=== PATIENT | female | born 1960 | race Caucasian/White ===

== ENCOUNTER 2016-07-21 10:55 | Emergency (ER) | payer MEDICAID ==
[~2016-07-21] VITALS: Ht 152.4 cm; Wt 64.9 kg
[~2016-07-21 10:55] MED LIST: FERR325T10 PO; OXYC-302 PO
[2016-07-21 12:34] LABS: ASPARTATE AMINO TRANSFERASE 16 U/L (15-37); BLOOD UREA NITROGEN 11 mg/dL (7-18)
[2016-07-21 13:26] VITALS: BP 151/89
== END 2016-07-21 14:14 | disposition home or self-care (01) ==
LOC: ED 14:00
DX: R60.0 Localized edema (principal); Z85.42 Personal history of malignant neoplasm of other parts of uterus
CPT/HCPCS: 36415; 80053; 85025; 85610; 85730; 93005; 93970; 99285